=== PATIENT | female | born 1970 | race Caucasian/White ===

== ENCOUNTER 2017-03-10 04:20 | Emergency (ER) | payer OTHER ==
[~2017-03-10] VITALS: Ht 165.1 cm; Wt 81.6 kg
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
[~2017-03-10 04:20] MED LIST: ATIVAN PO; CARBIDOPA5 GM; CRESTOR PO; LEXAPRO PO; TYLENOL #3 PO
[2017-03-10] MEDS ORDERED: TYLENOL #3 PO (04:28)
== END 2017-03-10 06:55 | disposition home or self-care (01) ==
LOC: SED 04:20
DX: S62.317A Displaced fracture of base of fifth metacarpal bone, left hand, initial encounter for closed fracture (principal); S16.1XXA Strain of muscle, fascia and tendon at neck level, initial encounter; S80.11XA Contusion of right lower leg, initial encounter; S20.219A Contusion of unspecified front wall of thorax, initial encounter; F41.9 Anxiety disorder, unspecified; Z79.899 Other long term (current) drug therapy; V49.49XA Driver injured in collision with other motor vehicles in traffic accident, initial encounter
CPT/HCPCS: 29125; 71020; 72040; 73090; 73130; 99283